=== PATIENT | female | born 1975 | race Caucasian/White ===

== ENCOUNTER 2017-02-09 12:46 | Inpatient (IN) ==
[2017-02-09] MEDS ORDERED: SODIUM CHLORIDE 0.9% 2,000 ML IV STA (13:12)
[2017-02-09] MEDS ORDERED: LEVOFLOXACIN INJ 750 MG in PREMIX 1 EACH IV STA (13:12)
[2017-02-09] MEDS ORDERED: VANCOMYCIN INJ 1,000 MG in SODIUM CHLORIDE 0.9% 250 ML IV STA (13:15)
[2017-02-09] MEDS ORDERED: VANCOMYCIN 1,000 MG VIAL ONE (13:20)
[2017-02-09] MEDS ORDERED: LEVOFLOXACIN INJ 150 ML IV ONE (13:20)
[2017-02-09 13:42] LABS: Basophils % 0.2 % (0.0-0.8); Hematocrit 30.3 VOL% (35.7-47.0); Hemoglobin 10.5 GM/DL (12.0-16.0); Immature Granulocytes % 0.6 %; Immature Granulocytes Absolute 0.07 #; Lymphocytes # 0.5 10*3/uL (1.4-4.0); Lymphocytes % 3.9 % (21.3-54.2); Mean Corpuscular HGB Conc 34.7 GM/DL (32-36); Mean Corpuscular Hemoglobin 30 PG (27-34); Mean Corpuscular Volume 86.3 FL (87-102); Mean Platelet Volume 10.4 FL (9.6-12.0); Monocytes # 0.6 10*3/uL (0.11-0.8); Monocytes % 4.8 % (1.7-12.7); Neutrophils # 10.4 10*3/uL (1.4-7.4); Neutrophils % 90.5 % (38.7-73.9); Platelet Count 143 T/CUMM (130-400); Red Blood Count 3.51 MC/CUMM (3.8-5.5); Red Cell Distribution Width 13.2 % (9.3-17.3); White Blood Count 11.5 T/CUMM (4-12)
[2017-02-09 13:49] LABS: Apearance,Urine CLOUDY (Clear); Bacteria,Urine Occasional /HPF (Few); Bilirubin,Urine Negative (Negative); Blood, Urine Moderate mg/dL (Negative); Glucose,Urine (UA) Negative (Negative); Ketones,Urine 20 mg/dL (Negative); Mucus,Urine Occasional /LPF (Occasional); Nitrite,Urine Negative (Negative); Protein,Urine 100 MG/DL; RBC,Urine 40 /HPF (0-4); Squamous Epithelial Cell,Urine Moderate /HPF (0-10); Urine Color Amber (Yellow); Urine Specific Gravity 1.028 (1.001-1.035); WBC,Urine 310 /HPF (0-6)
--- NOTE | 2017-02-09 13:49 | CT Report ---
CT abdomen pelvis Indication: Abdominal pain, left flank Comparison: None available Technique: Axial CT imaging of the abdomen and pelvis is performed without contrast. Findings: Cardiac and lung bases are within normal limits CT abdomen: The liver spleen pancreas and adrenal glands are normal in size and density. No evidence of focal lesion is demonstrated in these solid organs. There is moderate left hydronephrosis and small amount of perinephric stranding. There is a calculus in the left proximal ureter that measures 5 mm in size other smaller nonobstructing intrarenal calculi are seen in both kidneys. The bowel caliber is normal and no wall thickening or adjacent inflammatory change is seen. No evidence of free fluid or free air is present. CT pelvis: The bowel and bladder appear within normal limits. Small amount of free pelvic fluid is seen. The pelvic organs show no evidence of abnormality Impression: Moderate left hydronephrosis with small amount perinephric stranding. A 5 mm calculus and left proximal ureter. Small amount of free fluid in pelvis. Multiple small nonobstructing intraparenchymal renal calculi. This CT exam was performed using one or more the following dose reduction techniques: Automated exposure control, adjustment of the MA and/or KV according to patient size, or use of iterative reconstruction technique. PROCEDURE INTERPRETED AT [facility] DEPARTMENT OF RADIOLOGY Final Report Signed by: Dr. Johnathon Coreas
[2017-02-09 13:59] LABS: Calcium 8.7 MG/DL (8.5-10.1); Osmolality,Calculated 273.2 MOS/KG (273-304); Potassium 3.1 MMOL/L (3.5-5.1)
[2017-02-09 14:01] LABS: Lactic Acid 1.5 MMOL/L (0.4-2.0)
[2017-02-09] MEDS ORDERED: HYDROmorphone 2 MG/1 ML VIAL IV STA (14:01)
[2017-02-09] MEDS ORDERED: HYDROmorphone 2 MG/1 ML VIAL ONE (14:02)
--- NOTE | 2017-02-09 14:10 | Emergency Department Note ---
Domingo Reyna Brittany, am scribing for, and in the presence of, Jos Giraldo MD 13:16. Enzo Reyna Doug C, MD, personally performed the services described in this documentation, ascribed by Rose Lane in my presence, and it is both accurate and complete 410 . Arrival - Arrival Chief Complaint: Abdominal / Flank Pain Stated Complaint: kidney stone L side ED Nursing Triage Note: pt was in the er at [facility] sunday. pt c/o lt flank pain. states [facility] was unable to ct her Mode of Arrival: Ambulatory Limitations: No Limitations Source: Patient, RN Notes Reviewed Time Seen by Provider: 02/09/17 13:04 - History of Present Illness HPI Narrative: Patient is a 41-year-old white female presented emergency room with 4 day history of left flank pain nausea, weakness and fever. Patient states she has left flank pain and she went to the emergency room in [place] for pain with her scan was down. She was given a oral antibiotic and told she had a urinary tract infection. Patient states she is getting weak, dizzy and feels faint and she noticed that her heart rate was rapid. She noted that she had fever as high as 102 and felt she better be seen. States her left flank pain is significant. CT the abdomen here in the emergency room revealed have a 5 mm proximal ureteral stone on the left. Date of Last Menstrual Period: last week Allergies/Adverse Reactions: Allergies Allergy/AdvReac Type Severity Reaction Status Date / Time Penicillins Allergy RASH Verified 02/09/17 12:52 Review of System - Review of System 12 point system: reviewed and no additional remarkable complaints except as stated - Review of System Constitutional: Present: chills, fever Eyes: Absent: vision change Head/Ears/Nose/Throat: Absent: nasal drainage, sore throat Respiratory: Absent: respiratory distress Cardiovascular: Present: palpitations. Absent: chest pain Gastrointestinal: Present: abdominal pain, nausea, vomiting. Absent: diarrhea, constipation, melena, hematochezia Genitourinary female: Absent: dysuria, frequency, urgency Musculoskeletal: Present: back pain. Absent: arm pain, leg pain, neck pain Skin: Absent: rash Neurological: Present: vertigo. Absent: headache Psychiatric: Absent: anxiety, depression Hematological/Lymphatic: Absent: easy bleeding, easy bruising Medical,Surgical,& Family Hx - Social History Smoking Status: Never smoker Frequency of Alcohol Use: None Type of Drug Use: None Exam Vital Signs: Vital Signs Temperature 101.0 F H 02/09/17 13:10 Pulse Rate 121 H 02/09/17 13:10 Respiratory Rate 18 02/09/17 13:10 Blood Pressure 141/82 02/09/17 13:10 O2 Sat by Pulse Oximetry 98 02/09/17 12:50 - General General appearance: alert, in no apparent distress - Head Head exam: Present: atraumatic, normocephalic, normal inspection - Eye Eye exam: Present: normal appearance, PERRL, EOMI - ENT ENT exam: Present: normal exam, normal oropharynx, mucous membranes moist - Neck Neck exam: Present: normal inspection, full ROM, trachea midline - Chest Chest inspection: Present: normal inspection, symmetric chest wall rise - Respiratory Respiratory exam: Present: normal lung sounds bilaterally. Absent: respiratory distress - Cardiovascular Cardiovascular exam: Present: regular rate, normal rhythm, normal heart sounds. Absent: murmur, rubs, gallop - Abdominal Exam Abdominal exam: Present: soft, tenderness (Upper abdominal tenderness to palpation), normal bowel sounds - Extremities Exam Extremities exam: Present: normal inspection - Back Exam Back exam: Present: normal inspection - Neurological Exam Neurological exam: Present: alert, oriented X3, CN II-XII intact. Absent: motor sensory deficit - Psychiatric Psychiatric exam: Present: normal affect, normal mood - Skin Skin exam: Present: warm, dry Course Course Narrative: Patient's clinical presentation, laboratory and radiograph findings were discussed with Dr. Luis Giraldo. He asked that the patient be admitted to his services. Results - Labs CBC & BMP: 02/09/17 13:27 02/09/17 13:27 Lab Results: I have reviewed the patients labs - Diagnostic Findings Procedure: CT Abdomen and Pelvis: report reviewed by me (Left proximal ureteral stone with high-grade obstruction.) Disposition Clinical Impression: Pyelonephritis, Left ureteral calculus Case discussed with: patient Disposition: Still a Patient Condition: Guarded Time of Disposition: 14:09
[2017-02-09 14:32] LABS: Albumin 2.7 G/DL (3.4-5.0); Bilirubin,Total 0.7 MG/DL (0.2-1.0); Calcium 8.5 MG/DL (8.5-10.1); Osmolality,Calculated 274.1 MOS/KG (273-304); Potassium 3.2 MMOL/L (3.5-5.1); Total Protein 6.3 G/DL (6.4-8.3)
[2017-02-09] MEDS ORDERED: ONDANSETRON 4 MG/2 ML VIAL IV STA (14:41)
[2017-02-09 14:42] LABS: Band Neutrophils 1 % (0-10); Lymphocytes 3 % (20-55); Platelet Estimate Adequate; Segmented Neutrophils 95 % (50-85); Total Cells Counted 100
[2017-02-09] MEDS ORDERED: ONDANSETRON 4 MG/2 ML VIAL ONE (14:42)
[2017-02-09] MEDS: SODIUM CHLORIDE 0.9% 1,000 ML IV SCH (15:45)
--- NOTE | 2017-02-09 17:24 | Urology History & Physical ---
Assessment and Plan - Time spent with patient Time spent with patient: Greater than 30 minutes (1) Pyelonephritis Status: Acute Current Visit: Yes (2) Left ureteral calculus Status: Acute Assessment and plan: We are treating with antibiotics. We will see if her fever defervesces. If she spikes fever tonight we will stent her in the morning. Current Visit: Yes 12 point system: reviewed and no additional remarkable complaints except as stated History of Present Illness Chief complaint: Left flank pain History of present illness: Ms. العراقي is a 41 year old female known history stones. She has had lithotripsy in the past. But I have not seen her in a year and a half and she actually canceled her most recent appointment. She apparently developed acute onset left flank 3 days ago. She was seen in [place] and given some [place]. Pain progressed and she was seen in the emergency room today. There she had some fever the CT scan showed a 10 mm and a 6 mm stone in the left proximal ureter. She had 100 one temp in the emergency room. She was admitted for IV fluids and antibiotics. Possible stent. Home Medications Medication Instructions Recorded Confirmed Type Citalopram [CeleXA] 20 mg PO BEDTIME 02/09/17 02/09/17 History HYDROcodone/ACETAMIN 7.5-325 1 tablet PO Q6H PRN 02/09/17 02/09/17 History [[place] 7.5-325] Ondansetron HCl 4 mg PO Q6H PRN 02/09/17 02/09/17 History Allergies Allergy/AdvReac Type Severity Reaction Status Date / Time Penicillins Allergy RASH Verified 02/09/17 12:52 Medical,Surgical,& Family Hx - Medical History Medical History: noncontributory Genitourinary: History of: Kidney Stones - Surgical History Thoracic Surgeries: Surgical HX of;: Lithotripsy Neurologic Surgeries: Patient denies: Neurologic Surgery Abdominal Surgeries: Patient denies: Abdominal Surgery Reproductive Surgeries: Surgical HX of;: Breast Surgery (breast augmentation), Gynecologic Surgery, Tubal Ligation - Family History Family History: Reports;: Family Diabetes (mother and father), Family Hypertension (mother and father), Family Stroke (father had tia) - Social History Smoking Status: Never smoker Frequency of Alcohol Use: None Type of Drug Use: None Exam - Constitutional Vitals: Period Temp Pulse Resp BP Sys/Malik Pulse Ox Last 24 Hr 98.8 F-101.0 F 97-121 18-19 129-141/74-85 97-98 General appearance: no acute distress - Head Head exam: Present: normal inspection, normocephalic - ENT ENT exam: Present: normal exam - Neck Neck exam: Present: normal inspection - Respiratory Respiratory exam: Present: clear to auscultation bilaterally - Cardiovascular Cardiovascular exam: Present: regular rate and rhythm - GI/Abdominal GI/Abdominal exam: Present: tenderness (Left upper quadrant, mild left CVA), soft Results - Labs CBC & BMP: 02/09/17 13:27 02/09/17 13:27
[2017-02-09] MEDS: PROMETHAZINE 25 MG/1 ML VIAL IM PRN (17:52)
[2017-02-09] MEDS: ACETAMINOPHEN 325 MG TABLET PO PRN (17:53)
[2017-02-09] MEDS: POTASSIUM CHLORIDE RIDER 10 MEQ in PREMIX 1 EACH IV PRN (17:54)
[2017-02-09] MEDS: DOCUSATE SODIUM 100 MG CAPSULE PO SCH (21:00)
[2017-02-09] MEDS: CITALOPRAM 20 MG TABLET PO SCH (21:00)
[2017-02-10] MEDS: SODIUM CHLORIDE 0.9% 1,000 ML IV SCH ×4 (00:50→17:40)
[2017-02-10] MEDS ORDERED: VANCOMYCIN INJ 1,000 MG in SODIUM CHLORIDE 0.9% 250 ML IV SCH (02:00)
[2017-02-10] MEDS: HYDROmorphone 2 MG/1 ML VIAL IV PRN (03:40)
[2017-02-10] MEDS: PROMETHAZINE 25 MG/1 ML VIAL IM PRN ×3 (03:46→23:48)
[2017-02-10] MEDS: ACETAMINOPHEN 325 MG TABLET PO PRN ×2 (08:02→13:01)
[2017-02-10] MEDS: PANTOPRAZOLE 40 MG TABLET PO SCH (08:02)
[2017-02-10] MEDS: DOCUSATE SODIUM 100 MG CAPSULE PO SCH ×2 (08:02→20:37)
--- NOTE | 2017-02-10 12:40 | Urology Progress Note ---
Assessment and Plan (1) Pyelonephritis Status: Acute Current Visit: Yes (2) Left ureteral calculus Status: Acute Assessment and plan: We are treating with antibiotics. We will see if her fever defervesces. If she spikes fever tonight we will stent her in the morning. Current Visit: Yes Urology - PN: Subj Interval history: Patient has been afebrile and I decided not to stent her. She is feeling better she still weak as expected. But she is beginning to ambulate. She is tolerating solid food. She has not had a bowel movement in about 5 days so we will need to give her some cathartics. We will recheck her potassium today and I will check a renal panel in the morning. Exam - Constitutional Vitals: Period Temp Pulse Resp BP Sys/Malik Pulse Ox Last 24 Hr 97.0 F-101.0 F 86-121 18-20 122-141/70-85 93-99 Results - Labs CBC & BMP: 02/09/17 13:27 02/09/17 13:27
[2017-02-10] MEDS ORDERED: LACTULOSE 20 GM/30 ML UDCUP PO PRN (12:44)
[2017-02-10] MEDS ORDERED: MAGNESIUM HYDROXIDE SUSP 30 ML UDCUP PO PRN (12:44)
[2017-02-10] MEDS ORDERED: LEVOFLOXACIN INJ 750 MG in PREMIX 1 EACH IV SCH (14:30)
[2017-02-10] MEDS: ONDANSETRON 4 MG/2 ML VIAL IV PRN (14:38)
[2017-02-10] MEDS ORDERED: ACETAMINOPHEN 325 MG TABLET PO ONE (15:32)
[2017-02-10] MEDS: CITALOPRAM 20 MG TABLET PO SCH (20:37)
[2017-02-11] MEDS: SODIUM CHLORIDE 0.9% 1,000 ML IV SCH ×3 (04:43→19:38)
[2017-02-11] MEDS: HYDROmorphone 2 MG/1 ML VIAL IV PRN ×2 (05:38→19:38)
[2017-02-11 07:17] LABS: Albumin 1.9 G/DL (3.4-5.0); Osmolality,Calculated 280.1 MOS/KG (273-304); Phosphorous 1.5 MG/DL (2.5-4.9); Potassium 3.4 MMOL/L (3.5-5.1)
[2017-02-11] MEDS: DOCUSATE SODIUM 100 MG CAPSULE PO SCH ×2 (08:10→21:35)
[2017-02-11] MEDS: PANTOPRAZOLE 40 MG TABLET PO SCH (08:10)
[2017-02-11] MEDS: POTASSIUM CHLORIDE RIDER 10 MEQ in PREMIX 1 EACH IV PRN (10:41)
--- NOTE | 2017-02-11 12:16 | XRay Report ---
Exam: KUB Exam date: 02/11/2017 4:00 AM Indication: Abdominal pain Comparison: CT performed on February 09, 2017 Findings: Bowel gas pattern and visceral shadows are normal. Likely no change in position of the proximal left ureteral stone or nonobstructing bilateral calyceal stones since interval CT study.No acute osseous abnormalities. Visualized lung bases are unremarkable. Impression: No change in the bilateral nephrolithiasis or obstructing left ureterolithiasis PROCEDURE INTERPRETED AT [facility] DEPARTMENT OF RADIOLOGY Final Report Signed by: Carlos Harris
[2017-02-11] MEDS: ACETAMINOPHEN 325 MG TABLET PO PRN ×2 (13:42→21:34)
--- NOTE | 2017-02-11 13:43 | Urology Progress Note ---
Assessment and Plan (1) Pyelonephritis Status: Acute Current Visit: Yes (2) Left ureteral calculus Status: Acute Assessment and plan: We are treating with antibiotics. We will see if her fever defervesces. If she spikes fever tonight we will stent her in the morning. Current Visit: Yes Urology - PN: Subj Interval history: Patient unfortunately has urinary tract infection. Cultures returned. It is showing E. coli that is resistant to the Levaquin that I have had her on for the last 48 hours. This will unfortunately change our plan. I will not treat her tomorrow because she has not been covered with antibiotics. I am going to stop the Levaquin. I am going to put her on Rocephin with a test dose as she is allergic to penicillin. I will add tobramycin. We need to give her the eye antibiotics for 24 hours prior before instrumenting and I am going to extend her tomorrow. And then unfortunately we will treat her the following week. She is not happy about this but unfortunately this is out of my hands that she has a resistant organism. I discussed the stent and how we do this. Cystoscopy with ureteral stent placement was explained. She understands. We will leave a pull string explained that she needs to be careful with this pull string. Exam - Constitutional Vitals: Period Temp Pulse Resp BP Sys/Malik Pulse Ox Last 24 Hr 97.6 F-101.5 F 75-97 16-20 117-133/61-76 92-99 Results - Labs CBC & BMP: 02/09/17 13:27 02/11/17 06:35
[2017-02-11] MEDS: TOBRAMYCIN INJ 80 MG in SODIUM CHLORIDE 0.9% 100 ML IV SCH ×2 (15:31→22:20)
[2017-02-11] MEDS ORDERED: POTASSIUM CHLORIDE 20 MEQ TABLET PO ONE (15:33)
[2017-02-11] MEDS: CITALOPRAM 20 MG TABLET PO SCH (21:35)
[2017-02-12] MEDS: ONDANSETRON 4 MG/2 ML VIAL IV PRN (06:53)
[2017-02-12] MEDS: TOBRAMYCIN INJ 80 MG in SODIUM CHLORIDE 0.9% 100 ML IV SCH ×2 (06:54→14:27)
[2017-02-12] MEDS ORDERED: FAMOTIDINE 20 MG TABLET PO ONE (06:57)
[2017-02-12] MEDS ORDERED: DIAZEPAM 5 MG TABLET PO ONE (06:57)
[2017-02-12] MEDS: SODIUM CHLORIDE 0.9% 1,000 ML IV SCH (08:26)
[2017-02-12] MEDS ORDERED: SCOPOLAMINE 1.5 MG PATCH TRANSDERM ONE (08:31)
[2017-02-12] MEDS: PANTOPRAZOLE 40 MG TABLET PO SCH (09:22)
[2017-02-12] MEDS: DOCUSATE SODIUM 100 MG CAPSULE PO SCH (09:22)
--- NOTE | 2017-02-12 09:23 | Anesthesia Post-Op ---
Anesthesia Post OP - Post Ansesthetic Evaluation Patient seen in post op: Yes Resp: within normal limits CV: within normal limits Mental: within normal limits Temp: within normal limits [id number]: within normal limits Nausea and Vomiting: within normal limits Pain: within normal limits
[2017-02-12] MEDS ORDERED: SEVOFLURANE 1 UNIT/15 MINUTE INH ONE (09:28)
[2017-02-12] MEDS ORDERED: PROPOFOL 200 MG/20 ML VIAL IV ONE (09:28)
[2017-02-12] MEDS ORDERED: MIDAZOLAM 2 MG/2 ML VIAL ONE (09:28)
[2017-02-12] MEDS ORDERED: fentaNYL 100 MCG/2 ML VIAL ONE (09:28)
[2017-02-12] MEDS ORDERED: ONDANSETRON 4 MG/2 ML VIAL ONE (09:29)
[2017-02-12] MEDS ORDERED: ONDANSETRON 4 MG/2 ML VIAL IV PRN (09:29)
[2017-02-12] MEDS ORDERED: HYDROmorphone 2 MG/1 ML VIAL IV PRN (09:29)
[2017-02-12] MEDS ORDERED: DEXAMETHASONE 10 MG/1 ML VIAL ONE (09:29)
[2017-02-12] MEDS ORDERED: LACTATED RINGERS 1,000 ML IV ONE (09:29)
[2017-02-12] MEDS ORDERED: SODIUM CHLORIDE 0.9% 1,000 ML IV SCH (09:30)
[2017-02-12] MEDS ORDERED: LACTATED RINGERS 1,000 ML IV SCH (09:30)
--- NOTE | 2017-02-12 10:35 | Operative Note ---
Date of procedure: 02/12/17 Pre-op diagnosis: Left proximal ureteral calculi with pyelonephritis Post-op diagnosis: same Procedure: 41-year-old white female who was admitted with a ureteral calculi, actually 2 stones in the left proximal ureter. She did spike some fever would begin her on antibiotics and my plan was to treated with lithotripsy on Sunday. Her culture unfortunately returned, and her bacteria is resistant to the antibiotic we had her on. So I changed the antibiotics and change our plan. My plan is to stent her today to relieve the obstruction and drain the infection and then hopefully treat her with lithotripsy in about a week or so. Cystoscopy with ureteral stent placement was explained at length and in detail. Risks, complications, outcomes, sequelae explained. Patient understood this and agreed to proceed. Patient brought to the operative table placed table in supine position. She is given a general LMA. She is then prepared and draped and placed in the lithotomy position in the usual fashion. Formal timeout was performed. 25 Burmese cystourethroscope passed under direct vision. Urethra and bladder were normal. A guidewire was passed through the cystoscope and up the left ureter using fluoroscopic control. With some manipulation I was able get past the stones. The wire actually looked higher than it should have and I wanted to be sure I did not perforate the ureter stone open-ended catheter was passed over the wire. Open-ended catheter could not get past the stone so I removed the wire and performed a low pressure retrograde. The proximal larger stone, actually was manipulated up in the renal pelvis. But the wire was actually in the collecting system and went up to the upper pole and I did not want that so the wire was pulled back. Ureteral catheter was removed and over the wire a 6 Burmese 24 cm stent was placed with fluoroscopic control. There was a fair amount of purulent material that was drained from her renal pelvis. The pull string was then taped to the mons pubis. Bladder was drained. Patient tolerates procedure well was sent to the recovery room in stable condition. Implants: 6 Burmese 24 cm left ureteral stent Anesthesia: ADDI Surgeon / Physician: Luis Giraldo Estimated blood loss: none Specimens: none sent Condition: stable Disposition: PACU Results - Labs CBC & BMP: 02/09/17 13:27 02/11/17 06:35 Discharge Plan - Discharge Medications No Action Citalopram [CeleXA] 20 mg PO BEDTIME Ondansetron HCl 4 mg PO Q6H PRN PRN Reason: Nausea/Vomiting HYDROcodone/ACETAMIN 7.5-325 [Daniel 7.5-325] 1 tablet PO Q6H PRN PRN Reason: Pain - Follow Up or Referral - Forms/Instructions
--- NOTE | 2017-02-12 10:40 | Discharge Summary ---
Hospital Course - Hospital Course Hospital Course: 41-year-old white female presents with fever and 2 left proximal ureteral stones one 10 mm and the distal one 6 mm they were adjacent stones. She was begun on antibiotics and fluids. I held off on the stent and thought I might need to put a stent on Sunday. But her urine culture was negative and she was not running any fever. She did spike a little fever Sunday night and again I waited to see if she really needed the stent and she did not run fever Sunday night nor Sunday morning. My plan was to treat her on Sunday with lithotripsy. Her urine culture returned on Sunday and unfortunately, the culture revealed E. coli resistant to her antibiotics that she been on for the past 48 hours. With this in mind I changed her plan. I changed her antibiotics to Rocephin and tobramycin and plan on stent in her Sunday morning and waiting to do lithotripsy later after of cool this off. She underwent stenting without difficulty there was a fair amount of purulent material in her renal pelvis. She is now feeling better. I had a long discussion with her and the patient. I think we can watch her until this afternoon and let her go home we will treated with antibiotics and give her pain medicine and then I will see her on Sunday and plan a lithotripsy the following Sunday. She asked me about work, and I related that on Sunday she may return to work if she feels like it. But only she can tell. If she does not feel like workup would not push it. I will follow-up on 02/16/17 with a KUB. Discharge medications will be Percocet 20 mg, #20, 1-2 every 4-6 hours as needed pain. Zofran 4 mg, #15, 1 p.o. every 4-6 hours as needed nausea, no refills. Ditropan XL 10 mg, #10, 1 p.o. daily as needed bladder spasm, no refills. Duricef 500 mg, #20, 1 p.o. twice daily, no refills. Diagnosis - Discharge Diagnosis (1) Pyelonephritis Status: Acute (2) Left ureteral calculus Status: Acute Specialty Discharge - Follow Up or Referrals Follow up with: Luis Giraldo MD [Family Provider] - 02/16/17 10:00 am (Need KUB xray done before appointment at 8am) Discharge Plan - Discharge Data Disposition: Disch To Home/Self Care Condition at Discharge: Stable Activity: resume usual activities as tolerated Hygiene: no restrictions Weight Bearing at Discharge: full weight bearing Driving: no restrictions Contact your physician if you experience:: fever over 101, Bleeding, pain uncontrolled by pain medications - Discharge Medications New Acetaminophen Tab [Tylenol Tab] 650 mg PO Q4HR PRN tablet PRN Reason: Fever > 100.4 Or Headache Docusate Sodium Cap [Colace Cap] 100 mg PO BID capsule Continue Citalopram [CeleXA] 20 mg PO BEDTIME Ondansetron HCl 4 mg PO Q6H PRN PRN Reason: Nausea/Vomiting Discontinued HYDROcodone/ACETAMIN 7.5-325 [[place] 7.5-325] 1 tablet PO Q6H PRN PRN Reason: Pain - Follow Up or Referral Follow Up: Luis Giraldo MD [Family Provider] - 02/16/17 10:00 am (Need KUB xray done before appointment at 8am) - Forms/Instructions Instructions: Kidney Stones (DC), Ureteroscopy (DC) Exam - Constitutional Vitals: Period Temp Pulse Resp BP Sys/Malik Pulse Ox Last 24 Hr 97.0 F-100.5 F 87-108 16-20 127-145/65-86 90-100 Discharge Results Procedures and tests throughout hospitalization: Pending Orders 02/09/17 13:48 Blood Culture Stat 02/10/17 15:49 Blood Culture Stat 02/12/17 [place] retrograde pyelogram Routine Labs on day of discharge: Labs from last 24 hours 02/11/17 12:07 Vancomycin Trough 2.2 L Preliminary micro results at discharge 02/10/17 15:49 Blood Culture - Preliminary Blood No growth at 1 day 02/10/17 15:49 Blood Culture - Preliminary Blood No growth at 1 day 02/09/17 13:48 Blood Culture - Preliminary Blood No growth at 1 day 02/09/17 13:48 Blood Culture - Preliminary Blood No growth at 1 day DS: Provider Date of admission: 02/09/17 14:10 Primary care physician: . No PCP Attending physician on admission: Luis Giraldo MD Consults: 02/09/17 14:10 Consult to Case Mgmt/Social Srvs [CONS] Routine Reason for Case Mgmt/Social Srvs: Discharge Planning 02/09/17 14:15 Consult to Pharmacy [CONS] Routine Reason for Pharmacy Consult: Dose/Manage Vancomycin Discharging clinician: Luis Giraldo MD
--- NOTE | 2017-02-12 12:38 | Fluoroscopy Report ---
History: Kidney stones Date: 02/12/2017 Study: Fluoroscopy from left retrograde pyelogram Comparison exam: 02/11/2017 12 intraoperative spot films are captured and archived. 251 seconds fluoroscopy was utilized. Films document retrograde injection of contrast into the left ureter via cystoscopy. There are multiple filling defects compatible with small ureteral stones in the proximal left ureter. Subsequent films document satisfactory positioning of a double pigtail left ureteral stent. Impression: Left retrograde pyelogram documents proximal left ureteral stones. Left ureteral stent was placed in satisfactory position PROCEDURE INTERPRETED AT [facility] DEPARTMENT OF RADIOLOGY Final Report Signed by: Dr. Dorina Saldana
[2017-02-12 15:54] VITALS: BP 146/93
== END 2017-02-12 17:13 | disposition home or self-care (01) | DRG 690 ==
LOC: N.ED 12:46 → N.EDINP 14:10 → N.5E 15:47
PROVIDERS: ADMIT Urology; ATTEND Urology